=== PATIENT | female | born 1980 | race Caucasian/White ===

== ENCOUNTER 2020-11-10 08:32 | Outpatient (REF) | payer OTHER, SELFPAY ==
--- NOTE | ~2020-11-10 | MM_ITS ---
EXAMINATION: MM SCREENING DIGITAL BREAST TOMOSYNTHESIS, BILATERAL CLINICAL INFORMATION: Screening. Asymptomatic. No prior breast imaging. Age 40. No known family history breast cancer. The lifetime risk of breast cancer based on the Tyrer-Cuzick Model is 7%. COMPARISON: None (current study represents initial baseline exam). TECHNIQUE: Digital breast tomosynthesis is performed in both the craniocaudal and mediolateral oblique views along with computer-aided detection (CAD). Synthesized 2D images are generated from the tomosynthesis. FINDINGS: There are scattered areas of fibroglandular density (ACR BI-RADS breast composition Category b). There are no significant masses, abnormal calcifications, or other abnormalities. The axilla and skin contours are unremarkable. MM/MM tomosynthesis screening BI IMPRESSION: No mammographic evidence of malignancy. ASSESSMENT: BI-RADS 1: Negative RECOMMENDATION: Routine annual mammography screening. This patient's information was entered into a reminder system with a target due date for their next mammogram.
[2020-11-10 09:33] LABS: MANUAL DIFF FLAG NO
[2020-11-10 09:38] LABS: Basophils Absolute Auto 0.1 X10*3/uL (0.0-0.2); Basophils Percent Auto 1.4 % (0-2); Eosinophils Absolute Auto 0.2 X10*3/uL (0.0-0.4); Eosinophils Percent Auto 3.8 % (0-4); Hematocrit 40.4 % (37-47); Imm Gran Abs Auto 0.01 X10*3/uL (0.00-0.03); Imm Gran Pct Auto 0.2 % (0.0-0.4); Lymphocytes Absolute Auto 1.4 X10*3/uL (1.2-4.9); Lymphocytes Percent Auto 28.3 % (20-40); Mean Corpuscular HGB Conc 32.2 g/dl (31.0-35.0); Mean Corpuscular Hemoglobin 29.1 pg (27.0-33.0); Mean Corpuscular Volume 90.6 fL (80-98); Mean Platelet Volume 10.7 fL (9.4-12.3); Monocytes Absolute Auto 0.3 X10*3/uL (0.1-1.2); Monocytes Percent Auto 6.5 % (2-11); Neutrophils Percent Auto 59.8 % (45-73); Platelet Count 184 X10*3/uL (160-400); Red Blood Count 4.46 X10*6/uL (4.20-5.50); Red Cell Distribution Width 13.2 % (11.0-16.0)
[2020-11-10 09:53] LABS: Estimated Average Glucose 97 mg/dL
[2020-11-10 10:01] LABS: Alanine Aminotransferase 46 U/L (0-31); Albumin Level 4.6 g/dL (3.5-5.0); Alkaline Phosphatase 70 U/L (39-117); Anion Gap 12 (12-20); Aspartate Amino Transferase 21 U/L (5-31); Blood Urea Nitrogen 10 mg/dL (9-16); Calcium 9.5 mg/dL (8.4-10.2); Carbon Dioxide 25 mmol/L (22-29); Chloride 107 mmol/L (96-108); Cholesterol 213 mg/dL; Estimated Glomerular Filt Rate > 60; Glucose Random 111 mg/dL (60-115); HDL Cholesterol 37 mg/dL; LDL Cholesterol Calculated 126 mg/dl; Potassium 4.2 mmol/L (3.3-5.1); Sodium 140 mmol/L (135-145); Total Protein 7.3 g/dL (6.5-8.0); Triglycerides 250 mg/dL
[2020-11-10 10:15] LABS: Bilirubin Total 0.4 mg/dL (0.0-1.0)
[2020-11-10 10:21] LABS: Free T4 (Free Thyroxine) 0.77 ng/dL (0.71-1.85); Thyroid Stimulating Hormone 2.86 uIU/mL (0.32-4.0); Vitamin D 25-OH Total 13.9 ng/mL (>30)
[2020-11-10 10:28] LABS: Folate 17.6 ng/mL (> or = 4.0); Vitamin B12 330 pg/mL (200-900)
== END 2020-11-10 08:33 | disposition home or self-care (01) ==
LOC: HO.MAMMO 08:32
PROVIDERS: PCP Internal Medicine; Visit Provider Internal Medicine
DX: O24.419 Gestational diabetes mellitus in pregnancy, unspecified control (principal); O26.899 Other specified pregnancy related conditions, unspecified trimester; E78.00 Pure hypercholesterolemia, unspecified; Z12.31 Encounter for screening mammogram for malignant neoplasm of breast; Z3A.00 Weeks of gestation of pregnancy not specified
CPT/HCPCS: 36415; 77063; 77067; 80053; 80061; 82306; 82607; 82746; 83036; 84439; 84443; 85025

== ENCOUNTER → 2020-12-11 08:08 | Outpatient (BNVA) | payer OTHER, SELFPAY | PROVIDERS: PCP Internal Medicine; Referring Provider Internal Medicine; Visit Provider Internal Medicine Gastroenterology | DX: K21.9 Gastro-esophageal reflux disease without esophagitis (principal); E55.9 Vitamin D deficiency, unspecified; Z80.0 Family history of malignant neoplasm of digestive organs | CPT/HCPCS: 99202 ==

== ENCOUNTER 2020-12-20 13:22 | Outpatient (REF) | payer OTHER, SELFPAY ==
[2020-12-21 05:54] LABS: CT PCR NOT DETECTED (Not Detect.); NG PCR NOT DETECTED (Not Detect.)
[2020-12-23 09:57] LABS: HPV mRNA E6/E7 rflx Not Detected (Not Detected)
== END 2020-12-20 13:23 | disposition home or self-care (01) ==
LOC: HO.LAB 13:22
PROVIDERS: Visit Provider Advanced Practice Midwife
DX: Z01.411 Encounter for gynecological examination (general) (routine) with abnormal findings (principal); Z11.51 Encounter for screening for human papillomavirus (HPV); B37.2 Candidiasis of skin and nail; Z97.5 Presence of (intrauterine) contraceptive device
CPT/HCPCS: 87491; 87591; 87624; 88142

== ENCOUNTER 2021-04-17 06:36 | Day surgery (SDC) | payer OTHER, SELFPAY ==
[2021-04-12 14:12] VITALS: BMI 30.2
--- NOTE | 2021-04-16 08:56 | HO.ANESPROP2 ---
Documented by User: Claire Dickinson NP 04/16/21 08:56 HPI - Anesthesia Eval Consult details Narrative: 41yo F for ?Upper Endoscopy and Colonoscopy PMFSH Active Problems Active Problems: All Active Problems (Updated 01/02/21 @ 16:54 by Yadira Johnston CNM) Yeast infection of the skin (Acute) Well woman exam with routine gynecological exam (Acute) IUD (intrauterine device) in place (Acute) Vitamin D deficiency (Acute) GERD (gastroesophageal reflux disease) (Acute) Gestational diabetes (Acute) Tobacco abuse (Acute) Breast cancer screening by mammogram (Acute) Cervical cancer screening (Acute) Family history of colon cancer (Acute) Past Medical History Medical History Gestational diabetes Family History Family History Father Diabetes Mother Age: 72 History of colon cancer, Onset Age: 50 Daughter No problems noted. Daughter No problems noted. Daughter No problems noted. Son No problems noted. Brother No problems noted. Sister No problems noted. Sister No problems noted. Sister No problems noted. Maternal Uncle Myocardial infarct Paternal Uncle Myocardial infarct Alcohol abuse Surgical History Surgical History History of delivery Social History Social History Household Members: Family Alcohol intake: never Patient Tobacco Use Status: Current everyday Tobacco user Tobacco use type: Cigarette Cigarettes Per Day: 5 Use of substances other than those prescribed or required for medical reasons: No Have you been hit, kicked, punched, or otherwise hurt by someone within the past year? If so, by whom?: No Are you DNR?: No Advance Directives: No Advance Directives Information Provided: No Advance Directives on File: No Recently lost weight without trying: No Eating poorly because of decreased appetite: No Nutrition Risks: No Nutritional Risk Patient : No : No Current occupational status: employed Current occupation: [employer] Allergies Allergy/AdvReac Type Severity Reaction Status Date / Time No Known Allergies Allergy Verified 12/20/20 13:38 Home Medications Medication Instructions Recorded Confirmed Last Taken Type copper 380 square mm intrauterine INTRAUTERINE 12/20/20 Unknown History device (ParaGard T 380A) Exam Exam Date and Time: April 16, 2021 0856 Height,Weight and Vital Signs: Height 5 ft 2 in Weight 74.843 kg Assessment and Plan Assessment Anesthesia Assessment: Chart Reviewed Documented by User: Angela Abrams MD 04/17/21 07:35 [facility] Past Medical History Medical History Gestational diabetes Family History Family History Father Diabetes Mother Age: 72 History of colon cancer, Onset Age: 50 Daughter No problems noted. Daughter No problems noted. Daughter No problems noted. Son No problems noted. Brother No problems noted. Sister No problems noted. Sister No problems noted. Sister No problems noted. Maternal Uncle Myocardial infarct Paternal Uncle Myocardial infarct Alcohol abuse Surgical History Surgical History History of delivery History of Problems with Anesthesia: No Social History Social History Household Members: Family Alcohol intake: never Patient Tobacco Use Status: Current everyday Tobacco user Tobacco use type: Cigarette Cigarettes Per Day: 5 Use of substances other than those prescribed or required for medical reasons: No Have you been hit, kicked, punched, or otherwise hurt by someone within the past year? If so, by whom?: No Are you DNR?: No Advance Directives: No Advance Directives Information Provided: No Advance Directives on File: No Recently lost weight without trying: No Eating poorly because of decreased appetite: No Nutrition Risks: No Nutritional Risk Patient : No : No Current occupational status: employed Current occupation: [employer] Allergies Allergy/AdvReac Type Severity Reaction Status Date / Time No Known Allergies Allergy Verified 12/20/20 13:38 Home Medications Medication Instructions Recorded Confirmed Last Taken Type copper 380 square mm intrauterine INTRAUTERINE 12/20/20 Unknown History device (ParaGard T 380A) Exam Airway Mallampati Class: II TM Dist: >3cm Neck ROM: Full Loose/Missing/Broken Teeth: No Heart: RRR Lungs: CTA Assessment and Plan Assessment Anesthesia Assessment: Anesthesia Plan Discussed Final Anesthetic Review History of Problems with Anesthesia: No NPO: Yes ASA Class: II Final Preanesthetic Review: Meds/Allgs Chart Reviewed, Consent Obtained/Reviewed and Anes Risks/Benef Reviewed Patient Risk: Low Procedure Risk: Intermediate Anesthetic Plan Anesthetic Plan: MAC: Disposition: Standard PACU
--- NOTE | 2021-04-17 07:08 | MHC.SHP ---
Pre-Procedural Eval Section A Date of Service: 04/17/21 The patient is an INPATIENT: No The History & Physical has been completed within 30 days and I have reviewed it.: No Section B Chief Complaint: Gerd, Family Hx of colon Cancer Details of Present Illness: GERD, dysphagia Relevant Family History (Specify if Yes): Yes Relevant Social History: Tobacco Use Present Medications: see Short Stay Collaborative assessment Medical History: Significant History (Gestational diabetes) History of Previous Operations: Relevant previous surgery/procedure and date(s) (Status post ) Allergies: Allergies Allergy/AdvReac Type Severity Reaction Status Date / Time No Known Allergies Allergy Verified 12/20/20 13:38 Review of Systems Sugical H&P ROS: Negative: Constitution, Cardiovascular and Respiratory and Yes, Specify: Gastrointestinal (GERD, dysphagia) Exam Surgical H&P Exam: Normal: Heart, Normal: Lungs, Normal: Extremities and Normal: Abdomen Plan Diagnosis/Plan: Change (PT will have EGD today, colonoscopy to be rescheduled since she did not take the colon prep.) I have reviewed the history and physical and performed a pertinent physical examination on my patient. No changes have occurred unless specified.
[2021-04-17 07:09] VITALS: BP 123/79; PULSE 80; RESP 16; TEMP 36.6; O2SAT 98
--- NOTE | 2021-04-17 07:09 | P.BOP_ITS ---
Brief Operative Note Date of Service: 04/17/21 Pre-op diagnosis: GERD, dysphagia Post-op diagnosis: same Procedure: FLEXIBLE TRANSORAL UPPER GASTROINTESTINAL ENDOSCOPY WITH BIOPSIES AND ESOPHAGEAL BALLOON DILATION Consent: Indications for the procedure and potential complications of bleeding, perforation, reaction to medications and missed diagnosis were discussed with the patient and informed consent was obtained. Instrument: Olympus GIF H 190 mid size upper endoscope Monitoring: Vital signs and clinical assessment, continuous EKG monitoring, Pulse oximetry, Carbon Dioxide monitoring and blood pressure monitoring were done throughout the procedure. Procedure: The patient was placed in the left lateral decubitis position and pre-procedure medications were administered and a bite block was placed. The endoscope was inserted into the mouth and advanced under direct vision to the third part of duodenum. A careful inspection was made as the upper endoscope was withdrawn including a retroflexed examination of the proximal stomach; Findings and interventions are described below. Findings: Larynx: Edema of arytenoid cartilages Esophagus: Tortuous esophagus increased tertiary contractions without stricture or ring. Biopsies were obtained from proximal esophagus to check for EOE. Empiric balloon dilation was performed with 19 and 20 mm CRE balloon x 60 sec at each level. GE junction at 35 cms. No esophagitis or Barrera Stomach: Mild gastric erythema with multiple chronic appearing antral erosions. Biopsies were obtained. Grade 2 flap valve on retroflexed examination of the cardia. Duodenum: Normal bulb and descending duodenum Intervention: Biopsies as noted above Impression and Post Procedure Diagnosis: Endoscopy Findings: LARYNX: Changes suggestive of LPRD. ESOPHAGUS: Dysphagia likely due to esophageal motility disorder - empiric balloon dilation performed to 60 F. STOMACH: Gastritis with chronic appearing erosions Plan: Await pathology results Patient has an appointment on 05/03/21 in the GI Clinic with Ashley Miller M.D.- . Pt was scheduled for EGD and colonopscopy today - colonoscopy was not performed since patient had a regular diet yesterday and did not take any prep. Colonoscopy will be scheduled after her FU appt. Above findings were reviewed with the patient and GERD handout was given in the discharge area Surgeon: Ashley Miller MD Anesthesia: MAC (Dr Abrams) Was an Retail Shift Leader used for this Procedure?: No Estimated blood loss (mL): 0 Pathology: other (A. gastric antrum, R/O H. pylori B. proximal esophagus, R/O EOE) Condition: stable Disposition: PACU
[2021-04-17 07:22] LABS: UPreg QC Valid YES; Urine Pregnancy NEGATIVE (NEGATIVE)
[2021-04-17] MEDS: Lactated Ringers 1,000 ML 100 ML IVCONT (07:28)
--- NOTE | 2021-04-17 07:39 | P.OP_ITS ---
Operative Note Operative Note Date of Service: 04/17/21 Narrative: Pre-op diagnosis:?GERD, dysphagia Post-op diagnosis:?same Procedure:? FLEXIBLE TRANSORAL UPPER GASTROINTESTINAL ENDOSCOPY WITH BIOPSIES AND ESOPHAGEAL BALLOON DILATION Consent:?Indications for the procedure and potential complications of bleeding, perforation, reaction to medications and missed diagnosis were discussed with the patient and informed consent was obtained. Instrument:?Olympus GIF H 190 mid size upper endoscope Monitoring: Vital signs and clinical assessment, continuous EKG monitoring, Pulse oximetry, Carbon Dioxide monitoring and blood pressure monitoring were done throughout the procedure. Procedure:?The patient was placed in the left lateral decubitis position and pre-procedure medications were administered and a bite block was placed. The endoscope was inserted into the mouth and advanced under direct vision to the third part of duodenum. A careful inspection was made as the upper endoscope was withdrawn including a retroflexed examination of the proximal stomach; Findings and interventions are described below. Findings: Larynx: Edema of arytenoid cartilages Esophagus:? Tortuous?esophagus increased tertiary contractions without stricture or ring. Biopsies were obtained from proximal esophagus to check for EOE.? Empiric balloon dilation was performed with 19 and 20 mm CRE balloon x 60 sec at each level. GE junction at 35 cms.? No esophagitis or Barrera Stomach:?Mild gastric erythema with multiple chronic appearing antral erosions.? Biopsies were obtained. Grade 2 flap valve on retroflexed examination of the cardia. Duodenum:?Normal bulb and descending duodenum Intervention:?Biopsies as noted above Impression and Post Procedure Diagnosis: Endoscopy Findings: LARYNX: Changes suggestive of LPRD. ESOPHAGUS: Dysphagia likely due to esophageal motility disorder - empiric balloon dilation performed to 60 F. STOMACH: Gastritis with chronic appearing erosions Plan: Await pathology results Patient has an appointment on 05/03/21 in the GI Clinic with Ashley Miller M.D.- . Pt was scheduled for EGD and colonopscopy today - colonoscopy was not performed since patient had a regular diet yesterday and did not take any prep.? Colonoscopy will be scheduled after her FU appt. Above findings were reviewed with the patient and GERD handout was given in the discharge area Surgeon:?Ashley Miller MD Anesthesia:?MAC (Dr Abrams) Was an Senior Solutions Architect used for this Procedure?:?No Estimated blood loss (mL):?0 Pathology:?other (A. gastric antrum, R/O H. pylori? B. proximal esophagus, R/O EOE) Condition:?stable Disposition:?PACU
[2021-04-17 08:06] VITALS: BP 98/66; PULSE 93; RESP 18; TEMP 36.1; O2SAT 100
[2021-04-17 08:21] VITALS: BP 113/66; PULSE 75; RESP 18; O2SAT 98
[2021-04-17 08:36] VITALS: BP 124/82; PULSE 76; RESP 18; O2SAT 99
== END 2021-04-17 09:05 | disposition home or self-care (01) ==
PROVIDERS: Nurse Practitioner; Visit Provider Internal Medicine Gastroenterology
PROC: 0DJ08ZZ Inspection of Upper Intestinal Tract, Via Natural or Artificial Opening Endoscopic (ICD-10-PCS; CPT 43235; principal; 2021-04-17 07:30)
DX: R13.10 Dysphagia, unspecified (principal); K29.70 Gastritis, unspecified, without bleeding; K21.9 Gastro-esophageal reflux disease without esophagitis; Z80.0 Family history of malignant neoplasm of digestive organs
CPT/HCPCS: 43249; 43239; 81025; 88305; 88342; C1726

== ENCOUNTER → 2021-05-07 08:22 | Outpatient (BNVA) | payer OTHER, SELFPAY | PROVIDERS: Visit Provider Internal Medicine Gastroenterology | DX: K21.9 Gastro-esophageal reflux disease without esophagitis (principal); R10.13 Epigastric pain; E55.9 Vitamin D deficiency, unspecified; Z80.0 Family history of malignant neoplasm of digestive organs | CPT/HCPCS: 99212 ==

== ENCOUNTER 2021-08-06 11:04 | Day surgery (SDC) | payer OTHER, SELFPAY ==
[2021-06-26 12:45] VITALS: BMI 28.7
--- NOTE | 2021-07-02 13:24 | P.CONAN_ITS ---
HPI - Anesthesia Eval Consult details Narrative: 41yo F for Upper Endoscopy and Colonoscopy s/p EGD with balloon 04/2021 with MAC PMFSH Active Problems Active Problems: All Active Problems (Updated 05/07/21 @ 08:51 by Ashley Miller MD) Epigastric pain (Acute) Epigastric pain (Acute) Yeast infection of the skin (Acute) Well woman exam with routine gynecological exam (Acute) IUD (intrauterine device) in place (Acute) Vitamin D deficiency (Acute) GERD (gastroesophageal reflux disease) (Acute) Gestational diabetes (Acute) Tobacco abuse (Acute) Breast cancer screening by mammogram (Acute) Cervical cancer screening (Acute) Family history of colon cancer (Acute) Past Medical History Medical History (Updated 05/07/21 @ 08:51 by Ashley Miller MD) Gestational diabetes Family History Family History Father Diabetes Mother Age: 72 History of colon cancer, Onset Age: 50 Daughter No problems noted. Daughter No problems noted. Daughter No problems noted. Son No problems noted. Brother No problems noted. Sister No problems noted. Sister No problems noted. Sister No problems noted. Maternal Uncle Myocardial infarct Paternal Uncle Myocardial infarct Alcohol abuse Surgical History Surgical History (Updated 05/07/21 @ 08:33 by SHEN Gauthier) History of delivery History of esophagogastroduodenoscopy (EGD) History of Problems with Anesthesia: No Social History Social History Household Members: Family Alcohol intake: never Patient Tobacco Use Status: Current everyday Tobacco user Tobacco use type: Cigarette Cigarettes Per Day: 5 Current occupational status: employed Current occupation: [employer] Allergies Allergy/AdvReac Type Severity Reaction Status Date / Time No Known Allergies Allergy Verified 05/07/21 08:32 Exam Exam Date and Time: July 02, 2021 1324 Height,Weight and Vital Signs: Height 5 ft 1 in Weight 68.946 kg Pertinent Lab Results Pertinent Lab Results: Laboratory Tests 11/10/20 11/10/20 08:52 08:52 WBC 5.0 Hgb 13.0 Hct 40.4 Plt Count 184 Sodium 140 Potassium 4.2 Chloride 107 Carbon Dioxide 25 BUN 10 Creatinine 0.78 Assessment and Plan Assessment Anesthesia Assessment: Chart Reviewed Final Anesthetic Review History of Problems with Anesthesia: No
--- NOTE | 2021-08-02 12:21 | P.CONAN_ITS ---
HPI - Anesthesia Eval Consult details Narrative: 41yo F for Upper Endoscopy and Colonoscopy PMFSH Active Problems Active Problems: All Active Problems (Updated 05/07/21 @ 08:51 by Ashley Miller MD) Epigastric pain (Acute) Epigastric pain (Acute) Yeast infection of the skin (Acute) Well woman exam with routine gynecological exam (Acute) IUD (intrauterine device) in place (Acute) Vitamin D deficiency (Acute) GERD (gastroesophageal reflux disease) (Acute) Gestational diabetes (Acute) Tobacco abuse (Acute) Breast cancer screening by mammogram (Acute) Cervical cancer screening (Acute) Family history of colon cancer (Acute) Past Medical History Medical History (Updated 08/06/21 @ 11:20 by Tiki Bustillos RN) GERD (gastroesophageal reflux disease) Gestational diabetes Family History Family History Father Diabetes Mother Age: 72 History of colon cancer, Onset Age: 50 Daughter No problems noted. Daughter No problems noted. Daughter No problems noted. Son No problems noted. Brother No problems noted. Sister No problems noted. Sister No problems noted. Sister No problems noted. Maternal Uncle Myocardial infarct Paternal Uncle Myocardial infarct Alcohol abuse Surgical History Surgical History History of delivery History of esophagogastroduodenoscopy (EGD) History of Problems with Anesthesia: No Social History Social History Household Members: Family Alcohol intake: never Patient Tobacco Use Status: Current everyday Tobacco user Tobacco use type: Cigarette Cigarettes Per Day: 5 Use of substances other than those prescribed or required for medical reasons: No Are you DNR?: No Advance Directives: No Advance Directives Information Provided: No Current occupational status: employed Current occupation: [employer] Allergies Allergy/AdvReac Type Severity Reaction Status Date / Time No Known Allergies Allergy Verified 05/07/21 08:32 Exam Exam Date and Time: August 02, 2021 1221 Height,Weight and Vital Signs: Height 5 ft 1 in Weight 68.946 kg Assessment and Plan Assessment Anesthesia Assessment: Chart Reviewed Final Anesthetic Review History of Problems with Anesthesia: No
[2021-08-06 11:29] LABS: UPreg QC Valid YES; Urine Pregnancy NEGATIVE (NEGATIVE)
--- NOTE | 2021-08-06 11:35 | MHC.SHP ---
Pre-Procedural Eval Section A Date of Service: 08/06/21 The patient is an INPATIENT: No The History & Physical has been completed within 30 days and I have reviewed it.: No Section B Chief Complaint: Epigastric Pain, Fhx of colon cancer Details of Present Illness: Colon cancer screening, family history of colon cancer Relevant Family History (Specify if Yes): Yes Relevant Social History: Tobacco Use Present Medications: see Short Stay Collaborative assessment Medical History: Significant History (GERD, Gestational Diabetes) History of Previous Operations: Relevant previous surgery/procedure and date(s) (History of delivery History of esophagogastroduodenoscopy (EGD)) Allergies: Allergies Allergy/AdvReac Type Severity Reaction Status Date / Time No Known Allergies Allergy Verified 05/07/21 08:32 Review of Systems Sugical H&P ROS: Negative: Constitution, Cardiovascular, Respiratory and Gastrointestinal Exam Surgical H&P Exam: Normal: Heart, Normal: Lungs, Normal: Extremities and Normal: Abdomen Plan Diagnosis/Plan: Unchanged I have reviewed the history and physical and performed a pertinent physical examination on my patient. No changes have occurred unless specified.
[2021-08-06 11:40] VITALS: BP 106/65; PULSE 64; RESP 16; TEMP 35.9; O2SAT 98
[2021-08-06] MEDS: Sodium Phosphate,Mono-Dibasic 133 ML ENEMA PR (12:00)
[2021-08-06] MEDS: Lactated Ringers 1,000 ML 100 ML IVCONT (12:12)
--- NOTE | 2021-08-06 12:27 | PM.OP ---
Brief Operative Note Date of Service: 08/06/21 Pre-op diagnosis: Colon cancer screening, FH of colon cancer Post-op diagnosis: other (Diverticulosis, hemorrhoids, mild diffuse colitis) Procedure: COLONOSCOPY TILL CECUM WITH BIOPSIES Consent: Indications for the procedure and potential complications of bleeding, perforation, reaction to medications and missed diagnosis were discussed with the patient and informed consent was obtained. Instrument: Olympus PCF H 190 L variable stiffness pediatric colonoscope Monitoring: Vital signs and clinical assessment, intermittent blood pressure monitoring, continuous EKG monitoring, Pulse oximetry and Carbon Dioxide monitoring were done throughout the procedure. Colon withdrawl time was 29 minutes. Procedure: The patient was placed in the left lateral decubitis position and pre-procedure medications were administered. After a digital rectal examination of the ano-rectum, the video colonoscope was inserted into the rectum and advanced through the colon to the cecum. The colonoscope was slowly withdrawn in a retrograde panoramic fashion and the colon mucosa was carefully examined including a retroflexed view of the rectum. Findings and interventions are described below. Procedure Difficulty: Without difficulty Findings: Terminal Ileum: Distal 8 to 10 cms was examined - a few aphthoid ulcers in the distal TI and normal proximal TI - biopsies obtained Cecum: Patchy erythema with scattered discrete 3 - 5 mm aphthoid ulcers in the entire colon - biopsies obtained from right and left colon Ascending Colon: Patchy erythema with scattered discrete 3 - 5 mm aphthoid ulcers in the entire colon - biopsies obtained from right and left colon Transverse Colon: Patchy erythema with scattered discrete 3 - 5 mm aphthoid ulcers in the entire colon - biopsies obtained from right and left colon Descending Colon: Patchy erythema with scattered discrete 3 - 5 mm aphthoid ulcers in the entire colon - biopsies obtained from right and left colon Sigmoid Colon: Patchy erythema with scattered discrete 3 - 5 mm aphthoid ulcers in the entire colon - biopsies obtained from right and left colon. Moderate diverticulosis Rectum: Normal Ano-rectum: Small internal hemorrhoids Colon preparation: Good after copious irrigation and fair in the left colon. Impression and Post Procedure Diagnosis: Colonoscopy Findings: No polyps were detected. Patchy erythema with scattered discrete 3 - 5 mm aphthoid ulcers in the entire colon - ? NSAID use versus mild IBD -biopsies obtained from right and left colon Moderate diverticulosis seen in the sigmoid colon Small hemorrhoids on retroflexed exam. Plan: Await pathology results Patient has an appointment on 08/27/21 in the GI Clinic with Ashley Miller M.D.. Repeat Colonoscopy interval based on path results - in 3 years due to fair prep in the left colon. Above findings were reviewed with the patient and her and diverticulosis handouts were given in the discharge area Pt admits to taking Motrin 1-2 times a month for aches and pains. Surgeon: Ashley Miller MD Anesthesia: MAC (Dieter Youngblood CRNA) Was an Travel Coordinator used for this Procedure?: Yes Travel Coordinator: Mary Winkler Estimated blood loss (mL): 0 Condition: stable Disposition: PACU
--- NOTE | 2021-08-06 12:43 | PM.PROC ---
Brief Operative Note Date of procedure: 08/06/21 Pre-op diagnosis: Colon cancer screening, family history of colon cancer Post-op diagnosis: other (Diverticulosis, hemorrhoids, mild diffuse colitis) Procedure: Procedure:? COLONOSCOPY TILL CECUM WITH BIOPSIES Consent: Indications for the procedure and potential complications of bleeding, perforation, reaction to medications and missed diagnosis were discussed with the patient and informed consent was obtained. Instrument: Olympus PCF H 190 L variable stiffness pediatric colonoscope Monitoring: Vital signs and clinical assessment, intermittent blood pressure monitoring, continuous EKG monitoring, Pulse oximetry and Carbon Dioxide monitoring were done throughout the procedure. Colon withdrawl time was 29 minutes. Procedure: The patient was placed in the left lateral decubitis position and pre-procedure medications were administered. After a digital rectal examination of the ano-rectum, the video colonoscope was inserted into the rectum and advanced through the colon to the cecum. The colonoscope was slowly withdrawn in a retrograde panoramic fashion and the colon mucosa was carefully examined including a retroflexed view of the rectum. Findings and interventions are described below. Procedure Difficulty: Without difficulty Findings: Terminal Ileum: Distal 8 to 10 cms was examined - a few aphthoid ulcers in the distal TI and normal proximal TI - biopsies obtained Cecum:? Patchy erythema with scattered discrete 3 - 5 mm aphthoid ulcers in the entire colon - biopsies obtained from right and left colon Ascending Colon:? Patchy erythema with scattered discrete 3 - 5 mm aphthoid ulcers in the entire colon - biopsies obtained from right and left colon Transverse Colon:? Patchy erythema with scattered discrete 3 - 5 mm aphthoid ulcers in the entire colon - biopsies obtained from right and left colon Descending Colon:? Patchy erythema with scattered discrete 3 - 5 mm aphthoid ulcers in the entire colon - biopsies obtained from right and left colon Sigmoid Colon:? Patchy erythema with scattered discrete 3 - 5 mm aphthoid ulcers in the entire colon - biopsies obtained from right and left colon.? Moderate diverticulosis Rectum:? Normal Ano-rectum:? Small internal hemorrhoids Colon preparation:? Good after copious irrigation and fair in the left colon. Impression and Post Procedure Diagnosis: Colonoscopy Findings: No polyps were detected. Patchy erythema with scattered discrete 3 - 5 mm aphthoid ulcers in the entire colon - ? NSAID use versus mild IBD -biopsies obtained from right and left colon Moderate diverticulosis seen in the sigmoid colon Small hemorrhoids on retroflexed exam. Plan: Await pathology results Patient has an appointment on 08/27/21 in the [facility] with Ashley Miller M.D.. Repeat Colonoscopy interval based on path results - in 3 years due to fair prep in the left colon. Above findings were reviewed with the patient and her and diverticulosis handouts were given in the discharge area Pt admits to taking Motrin 1-2 times a month for aches and pains. Surgeon:?Ashley Miller MD Anesthesia: MAC (Dieter Youngblood, [facility]) Surgeon: Ashley Miller Continuous Miner Operator Helper: Mary Winkler Estimated blood loss (mL): 0 Pathology: other (A. T-I bxs, R/O Crohn's disease B. right-sided colon bxs, R/O Crohn's C. left-sided colon bxs, R/O Crohn's) Condition: stable Disposition: PACU
[2021-08-06 13:40] VITALS: BP 97/64; PULSE 77; RESP 15; TEMP 36.5; O2SAT 100
[2021-08-06 13:55] VITALS: BP 113/71; PULSE 60; RESP 16; TEMP 36.5; O2SAT 100
== END 2021-08-06 14:52 | disposition home or self-care (01) ==
PROVIDERS: Nurse Practitioner; Visit Provider Internal Medicine Gastroenterology
PROC: (CPT 45380; principal; 2021-08-06 11:30)
DX: Z12.11 Encounter for screening for malignant neoplasm of colon (principal); Z80.0 Family history of malignant neoplasm of digestive organs; K57.30 Diverticulosis of large intestine without perforation or abscess without bleeding; K64.8 Other hemorrhoids; K52.9 Noninfective gastroenteritis and colitis, unspecified; K63.3 Ulcer of intestine; K21.9 Gastro-esophageal reflux disease without esophagitis; F17.210 Nicotine dependence, cigarettes, uncomplicated; Z79.899 Other long term (current) drug therapy
CPT/HCPCS: 45380; 81025; 88305

== ENCOUNTER 2021-08-27 09:44 | Outpatient (REF) | payer OTHER, SELFPAY ==
[2021-08-27 11:18] LABS: MANUAL DIFF FLAG NO
[2021-08-27 11:46] LABS: Basophils Absolute Auto 0.1 X10*3/uL (0.0-0.2); Basophils Percent Auto 1.1 % (0-2); Eosinophils Absolute Auto 0.2 X10*3/uL (0.0-0.4); Eosinophils Percent Auto 4.2 % (0-4); Hemoglobin 12.1 g/dl (12.0-16.0); Imm Gran Abs Auto 0.02 X10*3/uL (0.00-0.03); Imm Gran Pct Auto 0.4 % (0.0-0.4); Lymphocytes Absolute Auto 1.4 X10*3/uL (1.2-4.9); Lymphocytes Percent Auto 29.4 % (20-40); Mean Corpuscular HGB Conc 32.7 g/dl (31.0-35.0); Mean Corpuscular Hemoglobin 29.5 pg (27.0-33.0); Mean Corpuscular Volume 90.2 fL (80.0-98.0); Mean Platelet Volume 10.5 fL (9.4-12.3); Monocytes Absolute Auto 0.3 X10*3/uL (0.1-1.2); Monocytes Percent Auto 6.9 % (2-11); Neutrophils Absolute Auto 2.8 x10*3/uL (2.0-8.3); Platelet Count 175 X10*3/uL (160-400); Red Cell Distribution Width 13.3 % (11.0-16.0); White Blood Count 4.8 X10*3/uL (4.8-10.8)
[2021-08-27 12:21] LABS: Alanine Aminotransferase 39 U/L (0-31); Albumin Level 4.3 g/dL (3.5-5.0); Alkaline Phosphatase 70 U/L (39-117); Anion Gap 12 (12-20); Aspartate Amino Transferase 23 U/L (5-31); Bilirubin Total 0.4 mg/dL (0.0-1.0); Blood Urea Nitrogen 12 mg/dL (9-16); C Reactive Protein 0.22 mg/dL (< or = 0.50); Calcium 9.7 mg/dL (8.4-10.2); Carbon Dioxide 29 mmol/L (22-29); Chloride 107 mmol/L (96-108); Estimated Glomerular Filt Rate > 60; Glucose Random 105 mg/dL (60-115); Potassium 4.7 mmol/L (3.3-5.1); Sodium 143 mmol/L (135-145); Total Protein 7.1 g/dL (6.5-8.0)
[2021-08-27 12:27] LABS: Erythrocyte Sedimentation Rate 12 MM/HR (0-20)
[2021-08-27 12:44] LABS: Ferritin 64 ng/mL (10-250)
== END 2021-08-27 09:45 | disposition home or self-care (01) ==
LOC: HO.LAB 09:44
PROVIDERS: Visit Provider Internal Medicine Gastroenterology
DX: R10.13 Epigastric pain (principal); K21.9 Gastro-esophageal reflux disease without esophagitis; Z80.0 Family history of malignant neoplasm of digestive organs
CPT/HCPCS: 36415; 80053; 81479; 82397; 82728; 83520; 85025; 85652; 86140; 88346; 88350

== ENCOUNTER 2021-10-17 15:52 | Outpatient (REF) | payer OTHER, SELFPAY ==
--- NOTE | ~2021-10-17 | US_ITS ---
EXAMINATION: US ABDOMEN COMPLETE CLINICAL INFORMATION: Epigastric pain. COMPARISON: None TECHNIQUE: Real-time imaging of the abdominal viscera. FINDINGS: PANCREAS: The head and the body of the pancreas homogeneous in echotexture. The tail is obscured by overlying gas. ABDOMINAL AORTA: The proximal, mid, and distal segments are normal in caliber. INFERIOR VENA CAVA: Visualized portions are normal. LIVER: Normal. The liver is normal in size. The liver contour is normal. Parenchymal echogenicity is normal. No focal hepatic lesion. There is no intrahepatic biliary duct dilatation seen. GALLBLADDER: The gallbladder is physiologically distended. Multiple mobile gallstones are present. The largest stone measures 2.0 x 1.0 x 1.8 cm. No evidence of gallbladder wall thickening or pericholecystic fluid. COMMON BILE DUCT: Normal in caliber measuring 0.3 cm in diameter. RIGHT KIDNEY: Normal. No hydronephrosis. No renal calculi or focal parenchymal lesions. The kidney measures 11.1 cm in maximum dimension. LEFT KIDNEY: Normal. No hydronephrosis. No renal calculi or focal parenchymal lesions. The kidney measures 12.1 cm in maximum dimension. SPLEEN: Normal. The spleen measures 11.0 cm in maximum dimension. FREE FLUID: None. US/US abdomen complete IMPRESSION: 1. Cholelithiasis without wall thickening. 2. The rest of the abdominal ultrasound is unremarkable.
== END 2021-10-17 15:53 | disposition home or self-care (01) ==
LOC: HO.US 15:52
PROVIDERS: Visit Provider Internal Medicine Gastroenterology
DX: R10.13 Epigastric pain (principal)
CPT/HCPCS: 76700